=== PATIENT | male | born 1985 | race Caucasian/White ===

== ENCOUNTER 2018-10-23 18:28 | Emergency (ER) | payer BC, OTHER ==
[~2018-10-23] VITALS: Ht 177.8 cm; Wt 81.7 kg
[2018-10-23] MEDS ORDERED: ESCITALOPRAM OX20 MG PO (18:39)
[2018-10-23] MEDS ORDERED: LIPITOR10 MG PO (18:39)
[2018-10-23] MEDS ORDERED: XANAX 0.5 MG0.5 MG PO (18:40)
[2018-10-23 19:03] LABS: RDW 12.8 % (10.5-14.5)
[2018-10-23 19:04] LABS: HEMATOCRIT 48.6 % (42.0-52.0); HEMOGLOBIN 17.3 gm/dL (14.0-18.0); MCH 30.7 pg (26.0-34.0); MCHC 35.6 g/dL (28.0-37.0); MCV 86.4 fL (80.0-100.0); RBC 5.62 mil/uL (4.50-6.00); WBC 9.7 thou/uL (4.0-11.0)
[2018-10-23 19:05] LABS: ANION GAP 13 mmol/L (7-16); BUN 11 mg/dL (7-18); CALCIUM 9.7 mg/dL (8.5-10.1); CHLORIDE 99 mmol/L (98-107); CO2 24 mmol/L (21-32); CREATININE 1.6 mg/dL (0.7-1.3); GLUCOSE 140 mg/dL (74-106); POTASSIUM 3.5 mmol/L (3.5-5.1); SODIUM 136 mmol/L (136-145)
[2018-10-23 19:14] LABS: TROPONIN-I <0.06 ng/mL (<0.06)
[2018-10-23 19:37] LABS: ABSOLUTE NEUTROPHILS 7.9 thou/uL (1.4-8.2); ANISOCYTOSIS 1+; PLATELET COUNT 183 thou/uL (150-400)
[2018-10-23] MEDS ORDERED: MAXALT10 MG PO (19:43)
[2018-10-23 21:39] LABS: URINE BILIRUBIN NEGATIVE (Negative); URINE BLOOD NEGATIVE (Negative); URINE CLARITY CLEAR; URINE COLOR YELLOW; URINE GLUCOSE-RANDOM* NEGATIVE (Negative); URINE KETONES NEGATIVE (Negative); URINE LEUKOCYTES-REFLEX NEGATIVE (Negative); URINE NITRITE-REFLEX NEGATIVE (Negative); URINE PROTEIN (DIPSTICK) NEGATIVE (Negative); URINE SPECIFIC GRAVITY <= 1.005 (1.005-1.035); URINE UROBILINOGEN 0.2 E.U./dl (0.2-1.0)
[2018-10-23 23:19] VITALS: BP 161/90
--- NOTE | 2018-10-24 15:58 | EKG ---
[address] [address] ELECTROCARDIOGRAM REPORT Name: MOHIT MILIAN [facility] [id number] ������������������ Admission: 10/23/18 ������������������ Attend Phys: Discharge: 10/23/18 ������������������ Date of : 81 Report #: [id number] ����������������������������������������������������������������� [id number] THIS REPORT FOR: //name// [facility] ED Test Date: 2018-10-23 Test Time: 18:29:28 Pat Name: MOHIT MILIAN Department: Room: Gender: M Pharmacy Student: : 1985 Requested By: Brenda Cruz Order Number: [id number] MD: Cain Dennison Measurements Intervals [place] Rate: 128 P: 40 HI: 157 QRS: 88 QRSD: 90 T: -19 QT: 304 QTc: 444 Interpretive Statements Sinus tachycardia Probable left atrial enlargement Probable left ventricular hypertrophy Borderline T abnormalities, inferior leads No previous ECG available for comparison Electronically Signed On 10-24-2018 15:58:37 CDT by Cain Dennison [email or web address] ��������������������������������������������� <ELECTRONICALLY SIGNED> ���������������������������������������� By: Cain Dennison MD ��������������������������������������������� 10/24/18 1558 1829 28 Cain Dennison MD /MONICA
== END 2018-10-23 23:20 | disposition home or self-care (01) ==
LOC: ER 18:28
PROVIDERS: Nurse Practitioner
DX: R00.0 Tachycardia, unspecified (principal); R19.7 Diarrhea, unspecified; E78.5 Hyperlipidemia, unspecified; F41.9 Anxiety disorder, unspecified; G43.909 Migraine, unspecified, not intractable, without status migrainosus; Z88.1 Allergy status to other antibiotic agents